=== PATIENT | male | born 1995 | race Caucasian/White ===

== ENCOUNTER 2018-09-19 14:42 | Emergency (ER) | payer MEDICAID ==
[2018-09-19] MEDS: ONDANSETRON (ODT) 4 MG TAB ODT (15:33)
[2018-09-19] MEDS: HYDROCODONE/APAP (5/325) TAB PO (15:33)
[2018-09-19] MEDS: KETOROLAC 60 MG INJ IM (16:49)
== END 2018-09-19 16:55 | disposition home or self-care (01) ==
LOC: FTE 14:42
DX: R51 Headache (principal)
CPT/HCPCS: 70450; 96372; 99285-25